=== PATIENT | female | born 1985 | race Two or more races ===

== ENCOUNTER 2024-01-03 15:10 | Emergency (ER) | payer MEDICAID, OTHER ==
[~2024-01-03] VITALS: Ht 152.4 cm; Wt 67.3 kg
[2024-01-03 16:07] VITALS: BP 105/63; PULSE 80; RESP 16; TEMP 98; O2SAT 100
[2024-01-03] MEDS: LIDOCAINE 1% HCL (LOCAL ANESTH.) INJ 20ML MDV ONE (16:51)
[2024-01-03] MEDS: cefTRIAXone SOD 1,000 MG VL IM ONE (16:56)
[2024-01-03] MEDS: IBUPROFEN 600 MG TAB PO ONE (16:57)
[2024-01-03] MEDS ORDERED: CEPH500C PO (16:57)
[2024-01-03] MEDS ORDERED: IBUP-1454 PO (16:57)
[2024-01-03] MEDS: LIDOCAINE 1% HCL (LOCAL ANESTH.) INJ 20ML MDV IJ ONE (16:57)
== END 2024-01-03 17:17 | disposition home or self-care (01) ==
LOC: ER 15:10
DX: S80.262A Insect bite (nonvenomous), left knee, initial encounter (principal); W57.XXXA Bitten or stung by nonvenomous insect and other nonvenomous arthropods, initial encounter; Y93.89 Activity, other specified; Y92.89 Other specified places as the place of occurrence of the external cause; Y99.8 Other external cause status
CPT/HCPCS: 73562; 96372; 99283; J0696; J2001